=== PATIENT | female | born 1985 | race Caucasian/White ===

== ENCOUNTER 2021-02-20 19:02 | Emergency (ER) | payer MEDICAID ==
[~2021-02-20] VITALS: Ht 152.4 cm; Wt 56.7 kg
[2021-02-20 19:22] VITALS: BP 135/78
--- NOTE | 2021-02-20 22:28 | NUR ---
PT IN [facility] FOR URINE SAMPLE
--- NOTE | 2021-02-20 22:28 | NUR ---
Yessica wallace in [facility] - 02/20/21 at 2228 by MEDDHRUV JOSE
[2021-02-20] MEDS ORDERED: ONDA4TAB PO (22:33)
[2021-02-20 23:33] VITALS: BP 135/78
== END 2021-02-20 23:33 | disposition home or self-care (01) ==
LOC: MED 19:02
DX: R11.0 Nausea (principal); Z20.822 Contact with and (suspected) exposure to COVID-19; Z79.899 Other long term (current) drug therapy
CPT/HCPCS: 81025; 99283; U0003